=== PATIENT | female | born 1975 | race Caucasian/White ===

== ENCOUNTER → 2017-07-03 | Outpatient (CLI) | payer BC | LOC: FIMAGING 12:18 | DX: Z12.31 Encounter for screening mammogram for malignant neoplasm of breast (principal) | CPT/HCPCS: G0202 ==

== ENCOUNTER → 2017-07-19 | Outpatient (CLI) | payer BC | LOC: FIMAGING 10:50 | PROVIDERS: ATTEND Midwife | DX: N63.20 Unspecified lump in the left breast, unspecified quadrant (principal) ==

== ENCOUNTER → 2018-10-18 | Outpatient (CLI) | payer BC | LOC: BMCIMAGING 09:48 | PROVIDERS: ATTEND Obstetrics & Gynecology | DX: Z12.31 Encounter for screening mammogram for malignant neoplasm of breast (principal) ==